=== PATIENT | male | born 2000 | race Caucasian/White ===

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

== ENCOUNTER 2022-01-06 04:04 | Emergency (ER) | payer MEDICAID ==
[~2022-01-06] VITALS: Ht 182.9 cm; Wt 77.0 kg
[~2022-01-06 04:04] MED LIST changes: +CLEOCIN300 MG PO
[2022-01-06 04:41] VITALS: BP 127/86
[2022-01-06] MEDS ORDERED: BACTRIM DS1 TAB PO (04:52)
[2022-01-06 05:00] VITALS: BP 127/86
== END 2022-01-06 05:00 | disposition home or self-care (01) ==
LOC: ED 04:04
DX: L03.316 Cellulitis of umbilicus (principal); F17.200 Nicotine dependence, unspecified, uncomplicated